=== PATIENT | female | born 1965 | race Asian ===

== ENCOUNTER 2017-04-15 11:30 | Emergency (ER) | payer SELFPAY ==
[2017-04-15 14:01] LABS: CARBON DIOXIDE 26.6 mmol/L (21-32); CHLORIDE SERUM 107 mmol/L (98-107); CREATININE SERUM 0.7 mg/dL (0.6-1.0); GFR1 > 60 mL/min; GLUCOSE SERUM 115 mg/dL (74-106); POTASSIUM SERUM 3.6 mmol/L (3.5-5.1); SODIUM SERUM 145 mmol/L (136-145)
[2017-04-15 14:06] LABS: ALBUMIN 3.2 g/dL (3.4-5.0); ALKALINE PHOSPHATASE 104 U/L (46-116); ALT/SGPT 21 U/L (14-59); AST/SGOT 21 U/L (15-37); BILIRUBIN TOTAL 0.74 mg/dL (0.20-1.00); CHOLESTEROL 200 mg/dL (<200); HDL CHOLESTEROL 49 mg/dL (40-60)
[2017-04-15 14:07] LABS: RED CELL DISTRIBUTION WIDTH 13.9 % (11.5-14.5)
[2017-04-15 14:24] LABS: PLATELET COUNT 4 x10^3mcL (130-400)
[2017-04-15 14:34] LABS: UA SPECIFIC GRAVITY 1.015 (1.005-1.035); microscopic required? YES; urine erythrocyte 1+ (NEGATIVE)
[2017-04-15 14:58] LABS: ATYPICAL LYMPH 5 %; MONOCYTE 14 % (0-7); SEGMENTED NEUTROPHILS 6 % (37-75)
[2017-04-15 15:00] LABS: rbc morphology (normal/abnorm) NORMAL (NORMAL)
[2017-04-15 15:01] LABS: PLATELET MORPHOLOGY PLATELETS DECREASED
[2017-04-15 17:17] VITALS: BP 130/82
== END 2017-04-15 17:17 | disposition home or self-care (01) ==
LOC: ED 11:30
PROVIDERS: Emergency Medicine
DX: C92.Z0 Other myeloid leukemia not having achieved remission (principal); D72.819 Decreased white blood cell count, unspecified; R04.0 Epistaxis; K08.89 Other specified disorders of teeth and supporting structures; J45.909 Unspecified asthma, uncomplicated; Z88.1 Allergy status to other antibiotic agents; Z88.8 Allergy status to other drugs, medicaments and biological substances
CPT/HCPCS: 36415; 83880; J7040; J7050; P9035